=== PATIENT | female | born 1950 | race African-American/Black ===

== ENCOUNTER → 2016-07-27 | Outpatient (CLI) | payer OTHER ==
[~2016-07-27] MED LIST: CYAN10005 PO; GLC/500 PO; HYDR25TA4 PO; MULT-190 PO; MULT-506 PO
[2016-07-27 19:23] LABS: BLOOD UREA NITROGEN 20 mg/dl (7-18); BUN/CREATININE RATIO 18.2 (10-20); CALCIUM 9.7 mg/dl (8.5-10.1); CARBON DIOXIDE 30 mmol/L (21-32); CHLORIDE 103 mmol/L (98-107); GLUCOSE 110 mg/dl (70-99); POTASSIUM 3.6 mmol/L (3.5-5.1); SODIUM 145 mmol/L (136-145)
== END | disposition home or self-care (01) ==
LOC: C.LAB 17:16
PROVIDERS: ATTEND Internal Medicine Geriatric Medicine
DX: I10 Essential (primary) hypertension (principal)

== ENCOUNTER → 2016-09-21 | Outpatient (CLI) | payer OTHER ==
[2016-09-21 16:56] LABS: BLOOD UREA NITROGEN 18 mg/dl (7-18); BUN/CREATININE RATIO 23.6 (10-20); CALCIUM 9.5 mg/dl (8.5-10.1); CARBON DIOXIDE 27 mmol/L (21-32); CHLORIDE 106 mmol/L (98-107); CREATININE 0.76 mg/dl (0.60-1.20); GLUCOSE 110 mg/dl (70-99); POTASSIUM 3.6 mmol/L (3.5-5.1); SODIUM 143 mmol/L (136-145)
== END | disposition home or self-care (01) ==
LOC: C.LABBC 12:14
PROVIDERS: ATTEND Internal Medicine Geriatric Medicine
DX: R11.2 Nausea with vomiting, unspecified (principal)

== ENCOUNTER → 2016-09-23 | Outpatient (CLI) | payer OTHER ==
--- NOTE | 2016-09-23 10:41 | DIAGNOSTIC IMAGING REPORT ---
ULTRASOUND RIGHT UPPER QUADRANT ABDOMEN CLINICAL HISTORY: Nausea and vomiting. COMPARISON STUDY: No priors. TECHNIQUE: Real-time, grayscale, and color flow sonography of the right upper quadrant of the abdomen was performed. Images are reviewed in the transverse and longitudinal planes. FINDINGS: Liver: The liver is normal in size and echotexture. There is no intrahepatic biliary ductal dilatation. The main portal vein is patent. Gallbladder: The gallbladder is normal in appearance. No gallstones are identified. There is no gallbladder wall thickening or pericholecystic fluid. A sonographic James's sign is reportedly absent. The common bile duct measures up to 0.5 cm in diameter. Pancreas: Visualized portions of the pancreatic head and body are normal in appearance. The splenic vein is patent. Right kidney: Survey images of the right kidney demonstrate normal size and echotexture. There is no hydronephrosis. Ascites: None. IMPRESSION: Unremarkable sonographic assessment of the right upper quadrant. No gallstones are identified. Electronically signed by: Tony De Leon M.D. 09/23/2016 10:40 AM Dictated Date/Time: 09/23/2016 10:39 AM
--- NOTE | 2016-09-23 12:15 | DIAGNOSTIC IMAGING REPORT ---
DOUBLE CONTRAST UPPER GI SERIES CLINICAL HISTORY: Nausea and vomiting. Constipation. Epigastric abdominal pain. COMPARISON STUDY: Abdominal ultrasound dated 09/23/2016. TECHNIQUE: A standard air contrast upper GI series was performed. Spot images of the esophagus and stomach were obtained in multiple obliquities both upright and prone. FINDINGS: The patient swallowed barium without difficulty. The esophagus is structurally normal without evidence of intrinsic or extrinsic mass. Mild dysmotility is seen in the distal third of the esophagus. The esophageal mucosal pattern is normal. No gastroesophageal reflux was elicited by having the patient perform the Valsalva maneuver. The gastroesophageal junction distends normally. The stomach is normal in configuration and demonstrates normal distensibility. No mass or ulceration is identified. There was no evidence of gastritis. The duodenal bulb and sweep are unremarkable. Fluoroscopy time: 4.4 minutes. Fluoroscopic images: 20 IMPRESSION: Mild esophageal dysmotility. Otherwise unremarkable fluoroscopic upper GI series. Electronically signed by: Tony De Leon M.D. 09/23/2016 12:14 PM Dictated Date/Time: 09/23/2016 12:13 PM
== END | disposition home or self-care (01) ==
LOC: C.ULTR 10:07
PROVIDERS: ATTEND Internal Medicine Geriatric Medicine
DX: R11.2 Nausea with vomiting, unspecified (principal); K22.4 Dyskinesia of esophagus

== ENCOUNTER → 2016-11-26 | Outpatient (CLI) | payer OTHER ==
--- NOTE | 2016-11-26 16:41 | MAMMOGRAPHY REPORT ---
BILATERAL DIGITAL SCREENING MAMMOGRAM WITH CAD: 11/26/2016 CLINICAL HISTORY: Routine screening. Patient has no complaints. TECHNIQUE: Current study was also evaluated with a Computer Aided Detection (CAD) system. Bilatera l CC and MLO and XCCL views were obtained. COMPARISON: Comparison is made to exams dated: 11/24/2015 mammogram, 11/22/2014 mammogram, 11/16/2013 sherron mogram, 11/07/2012 mammogram, 05/08/2012 mammogram, and 04/28/2012 mammogram - [facility]. BREAST COMPOSITION: The tissue of both breasts is heterogeneously dense, which may obscure small ma sses. FINDINGS: No suspicious masses, calcifications, or areas of architectural distortion are noted in e ither breast. There has been no significant interval change compared to prior exams. Nodular asymme tries posterior to the left nipple on the cc view are stable compared to prior exams. IMPRESSION: ACR BI-RADS CATEGORY 2: BENIGN There is no mammographic evidence of malignancy. A 1 year screening mammogram is recommended. The p atient will receive written notification of the results. Approximately 10% of breast cancers are not detected with mammography. A negative mammographic repor t should not delay biopsy if a clinically suggestive mass is present. Sneha Ivey M.D. ah/:11/26/2016 15:49:03 [employer]: Yasemin QUINTERO([place])([place])([place]), [facility] letter sent: Normal 1/2 BI-RADS Code: ACR BI-RADS Category 2: Benign
== END | disposition home or self-care (01) ==
LOC: C.MAMM 10:45
PROVIDERS: ATTEND Internal Medicine Geriatric Medicine
DX: Z12.31 Encounter for screening mammogram for malignant neoplasm of breast (principal)

== ENCOUNTER → 2017-06-02 | Outpatient (CLI) | payer OTHER ==
[2017-06-02 17:59] LABS: BASO % 0.3 %; BASO ABS # 0.01 K/uL (0-0.2); COMPLETE YES; HEMATOCRIT 37.8 % (37-47); IG% 0.3 %; LYMPH % 37.6 %; LYMPH ABS # 1.41 K/uL (1.2-3.4); MEAN CELL VOLUME 96.2 fL (80-100); MEAN CORPUSCULAR HEMOGLOBIN 31.8 pg (25-34); MEAN CORPUSCULAR HGB CONC 33.1 g/dl (32-36); MEAN PLATELET VOLUME 9.3 fL (7.4-10.4); MONO % 7.5 %; NEUT % 54.3 %; PLATELET COUNT 229 K/uL (130-400); RED BLOOD COUNT 3.93 M/uL (4.2-5.4); WHITE BLOOD COUNT 3.75 K/uL (4.8-10.8)
[2017-06-02 18:31] LABS: ALT/SGPT 24 U/L (12-78); BLOOD UREA NITROGEN 19 mg/dl (7-18); BUN/CREATININE RATIO 27.5 (10-20); CALCIUM 9.1 mg/dl (8.5-10.1); CARBON DIOXIDE 33 mmol/L (21-32); CHLORIDE 103 mmol/L (98-107); CHOLESTEROL 123 mg/dl (0-200); CREATININE 0.71 mg/dl (0.60-1.20); GLUCOSE 84 mg/dl (70-99); POTASSIUM 3.4 mmol/L (3.5-5.1); SODIUM 142 mmol/L (136-145); TRIGLYCERIDES 129 mg/dl (0-150); VERY LOW DENSITY LIPOPROT CALC 26 mg/dl
[2017-06-02 18:41] LABS: ALB/GLOB RATIO 0.9 (0.9-2); ALKALINE PHOSPHATASE 60 U/L (45-117); AST/SGOT 19 U/L (15-37); CHOLESTEROL/HDL RATIO 2.4; HDL CHOLESTEROL 52 mg/dl; LDL CHOLESTEROL CALCULATED 45 mg/dl
[2017-06-02 23:09] LABS: RATIO 7.7 mcg/mg (0-30.0)
[2017-06-03 06:05] LABS: ESTIMATED AVERAGE GLUCOSE 126 mg/dl; HA1C FLAG Normal (Normal)
== END | disposition home or self-care (01) ==
LOC: C.LAB 16:48
PROVIDERS: ATTEND Physician Assistant Medical
DX: I10 Essential (primary) hypertension (principal); E11.9 Type 2 diabetes mellitus without complications; E04.0 Nontoxic diffuse goiter

== ENCOUNTER → 2017-06-13 | Outpatient (CLI) | payer OTHER ==
--- NOTE | 2017-06-13 09:13 | DIAGNOSTIC IMAGING REPORT ---
SOFT TISS HEAD/NECK-THYROID CLINICAL HISTORY: 66 years-old Female with E01.0 Thyromegaly COMPARISON: None available TECHNIQUE: Multiple real time sonographic images of the thyroid were obtained accessing roman scale appearance and color doppler flow. FINDINGS: MEASUREMENTS: Right lobe: 6.7 x 2.7 x 2.4 cm Left lobe: 7.1 x 2.7 x 2.3 cm Isthmus: 1.1 cm PARENCHYMA: The thyroid parenchymal echotexture is diffusely heterogeneous. NODULES: Solid isoechoic ovoid nodule of the mid pole right thyroid measures up to 1.6 cm. Mildly heterogeneous probably isoechoic nodule of the lower pole right thyroid measures up to 1.5 cm. Probable colloid cyst of the mid pole right thyroid measures up to 1.1 cm. Calcification of the mid pole left thyroid measures up to 0.4 cm. Mildly hyperechoic ovoid nodule measuring up to 0.8 cm is seen within the mid pole left thyroid. IMPRESSION: 1. Heterogeneous multinodular goiter with two solid nodules in the right thyroid lobe meeting criteria for ultrasound guided FNA biopsy measuring up to 1.6 and 1.5 cm respectively. 2. No suspicious nodules of the left thyroid identified. The above report was generated using voice recognition software. It may contain grammatical, syntax or spelling errors. Electronically signed by: Reji Alvarado M.D. 06/13/2017 9:11 AM Dictated Date/Time: 06/13/2017 9:06 AM
== END | disposition home or self-care (01) ==
LOC: C.ULTRBC 08:22
PROVIDERS: ATTEND Physician Assistant Medical
DX: E01.0 Iodine-deficiency related diffuse (endemic) goiter (principal)

== ENCOUNTER → 2017-06-21 | Outpatient (CLI) | payer OTHER ==
--- NOTE | 2017-06-21 14:03 | DIAGNOSTIC IMAGING REPORT ---
ULTRASOUND-GUIDED FINE-NEEDLE ASPIRATION BIOPSY OF 2 RIGHT-SIDED THYROID NODULES CLINICAL HISTORY: Multinodular thyroid gland COMPARISON STUDY: 06/13/2017 FINDINGS: A timeout was performed. The risks the procedure were explained the patient and informed consent was obtained. Patient was prepped in sterile fashion. The skin was anesthetized 1% lidocaine. Under ultrasound guidance, 2 samples of the mid pole right lobe nodule in question were performed utilizing a 25-gauge needle. Under ultrasound guidance, 2 samples of the lower pole right lobe thyroid nodule in question were performed utilizing a 25-gauge needle. Initial pathologic review indicates satisfactory material for diagnosis. IMPRESSION: Successful ultrasound-guided fine-needle aspiration biopsy of 2 right-sided thyroid nodules. Electronically signed by: Siddharth Ferrari M.D. 06/21/2017 2:01 PM Dictated Date/Time: 06/21/2017 1:59 PM
--- NOTE | 2017-06-21 14:05 | DIAGNOSTIC IMAGING REPORT ---
ULTRASOUND-GUIDED FINE-NEEDLE ASPIRATION BIOPSY OF A LEFT LOWER ISTHMUS NODULE. CLINICAL HISTORY: Multinodular thyroid gland COMPARISON STUDY: 08/13/2016 FINDINGS: A timeout was performed. The risks of the procedure were explained to the patient and informed consent was obtained. The patient was prepped in sterile fashion. The skin was anesthetized with 1% lidocaine. Under ultrasound guidance, 2 samples of a heterogeneous left lower isthmus nodule were obtained. Initial pathologic review indicates satisfactory material for diagnosis. IMPRESSION: Successful ultrasound-guided fine-needle aspiration biopsy of a heterogeneous left lower isthmus nodule Electronically signed by: Siddharth Ferrari M.D. 06/21/2017 2:03 PM Dictated Date/Time: 06/21/2017 2:02 PM
== END | disposition home or self-care (01) ==
LOC: C.ULTR 12:26
PROVIDERS: ATTEND Physician Assistant Medical
DX: E01.0 Iodine-deficiency related diffuse (endemic) goiter (principal)

== ENCOUNTER → 2017-09-01 | Outpatient (CLI) | payer OTHER ==
--- NOTE | 2017-09-01 10:53 | DIAGNOSTIC IMAGING REPORT ---
GUIDANCE NEEDLE PLACEMENT CLINICAL HISTORY: 66 years-old Female presenting with E01.0 Thyromegaly isthmus (center nodule)[id number], biopsy of the isthmic nodule from June demonstrating atypia, follow-up. TECHNIQUE: Real-time grayscale and limited color Doppler ultrasound imaging of the thyroid was performed for ultrasound-guided fine-needle aspiration. COMPARISON: 06/21/2017. PROCEDURE: The risks, benefits, and alternatives of the procedure were discussed with the patient. Written informed consent was obtained. A timeout was performed to confirm patient identity. The patient was placed supine in ultrasound, and the multilobular nodule in the left aspect of the isthmus of the thyroid was localized by ultrasound and selected for fine needle aspiration. The midline neck was prepped and draped in the usual sterile fashion. The nodule was aspirated under ultrasound guidance with 2 passes utilizing 25-gauge needles. Specimens were reviewed by the pathologist at the time of biopsy and were deemed adequate for diagnosis. The patient tolerated the procedure well. IMPRESSION: Successful fine-needle aspiration of the isthmus thyroid nodule as above. Electronically signed by: Adrien Houston M.D. 09/01/2017 10:51 AM Dictated Date/Time: 09/01/2017 10:50 AM
== END | disposition home or self-care (01) ==
LOC: C.ULTR 09:31
PROVIDERS: ATTEND Physician Assistant Medical
DX: E01.0 Iodine-deficiency related diffuse (endemic) goiter (principal)

== ENCOUNTER → 2017-10-11 | Outpatient (CLI) | payer OTHER | END | disposition home or self-care (01) | LOC: C.RDSM 13:17 | PROVIDERS: ATTEND Orthopaedic Surgery Sports Medicine | DX: M25.562 Pain in left knee (principal) ==

== ENCOUNTER → 2017-10-31 | Outpatient (CLI) | payer OTHER ==
--- NOTE | 2017-10-31 12:05 | DIAGNOSTIC IMAGING REPORT ---
MRI LEFT KNEE NO CONTRAST CLINICAL HISTORY: LT KNEE PAIN COMPARISON STUDY: Conventional radiographic study dated 10/11/2017 FINDINGS: Imaging was performed in the axial, sagittal, and coronal planes. There are no areas of marrow edema to indicate occult fracture or bone bruise. The quadriceps and patellar tendons appear intact. Anterior and posterior cruciate ligaments appear intact. There is a large suprapatellar joint effusion. No tears of the lateral meniscus are visualized. There is a complex tear involving the posterior horn the medial meniscus. There is mild medial extrusion of the medial meniscus. The lateral collateral ligament appears intact. There is edema surrounding the medial collateral ligament suggesting an MCL strain. There is mild chondromalacia patella. There is moderate medial joint compartment chondrosis. There is a popliteal cyst. IMPRESSION: 1. Complex tear involving the posterior horn of the medial meniscus. 2. Chondromalacia patella. Moderate medial joint compartment chondrosis. 3. Moderate joint effusion. 4. Popliteal cyst. 5. Mild MCL strain Electronically signed by: Siddharth Ferrari M.D. 10/31/2017 12:04 PM Dictated Date/Time: 10/31/2017 11:57 AM
== END | disposition home or self-care (01) ==
LOC: C.MRI 10:31
PROVIDERS: ATTEND Orthopaedic Surgery Sports Medicine
DX: S83.242A Other tear of medial meniscus, current injury, left knee, initial encounter (principal); X58.XXXA Exposure to other specified factors, initial encounter; M71.22 Synovial cyst of popliteal space [Baker], left knee; M22.42 Chondromalacia patellae, left knee

== ENCOUNTER → 2018-02-21 | Outpatient (CLI) | payer OTHER ==
[2018-02-21 14:31] LABS: BLOOD UREA NITROGEN 18 mg/dl (7-18); CARBON DIOXIDE 31 mmol/L (21-32); CREATININE 0.79 mg/dl (0.60-1.20); GLUCOSE 97 mg/dl (70-99); POTASSIUM 3.5 mmol/L (3.5-5.1); SODIUM 141 mmol/L (136-145)
== END | disposition home or self-care (01) ==
LOC: C.LAB 12:44
PROVIDERS: ATTEND Physician Assistant Medical
DX: I10 Essential (primary) hypertension (principal)